=== PATIENT | female | born 1955 | race Caucasian/White ===

== ENCOUNTER → 2018-05-25 | Outpatient (CLI) | payer BC ==
--- NOTE | 2018-05-25 12:13 | NM ---
EXAMINATION TYPE: NM thyroid image only DATE OF EXAM: 05/25/2018 COMPARISON: NONE HISTORY: Abnormal thyroid labs R94.6 TECHNIQUE: After the intravenous administration of 10.45 mCi Tc 99m Sodium Pertechnetate. FINDINGS: Thyroid gland is enlarged. There is a warm nodule noted within the lower pole of the right thyroid lo be and cold defect identified within the lower pole of the left thyroid lobe. Diffuse glandular heter ogeneity is noted. IMPRESSION: 1. Thyroidomegaly. 2. Cold nodule suggested lower pole left thyroid lobe. Correlate with ultrasound.
== END | disposition home or self-care (01) ==
LOC: RADNMMAIN 10:57
PROVIDERS: ATTEND Family Medicine
DX: E01.0 Iodine-deficiency related diffuse (endemic) goiter (principal)
CPT/HCPCS: 78013; A9512

== ENCOUNTER → 2018-05-25 | Outpatient (CLI) | payer BC ==
--- NOTE | 2018-05-25 12:27 | US ---
EXAMINATION TYPE: US thyroid st tissue head/neck DATE OF EXAM: 05/25/2018 COMPARISON: Nuclear medicine thyroid scan from the same day CLINICAL HISTORY: Neck mass R22.0. Pt states palpable lump right anterior neck x 6 months GLAND SIZE: Right Lobe: 5.9 x 3.0 x 4.2 cm Overall Parenchyma: heterogenous Left Lobe: 4.1 x 1.1 x 1.2 cm Overall Parenchyma: heterogeneous Isthmus Thickness: 0.3 cm NODULES RIGHT: # of nodules measured on right: 1 1. 4.1 X 2.8 x 3.7 cm mixed nodule at the mid pole with well-defined margins; This nodule is wider than tall and shows intranodular vascularity. Prior size: No prior 2. 1.3 X 1.3 x 1.0 cm hypoechoic solid nodule at the upper pole with well-defined margins; This nod ule is wider than tall and shows intranodular vascularity. Prior size: No prior LEFT: # of nodules measured on left: 1 1. 0.6 X 0.4 x 0.6 cm hypoechoic mixed nodule at the mid pole with well-defined margins; This nodul e is wider than tall and shows intranodular vascularity. Prior size: No prior Multiple, sub-centimeter nodules scattered throughout left lobe, largest measured Bilateral neck scanned, no evidence of lymphadenopathy. Multiple nodules bilaterally, with largest on right side. IMPRESSION: 1. There is evidence of thyroidomegaly with the right lobe being larger than the left. 2. Diffuse glandular heterogeneity. 3. No suspicious nodule left thyroid lobe. 4. Complex nodule right thyroid lobe. Consider tissue diagnosis.
== END | disposition home or self-care (01) ==
LOC: RADUSWWP 11:01
PROVIDERS: ATTEND Family Medicine
DX: E01.0 Iodine-deficiency related diffuse (endemic) goiter (principal)
CPT/HCPCS: 76536

== ENCOUNTER → 2021-03-26 | Outpatient (CLI) | payer MEDICARE ==
--- NOTE | 2021-03-27 10:17 | MM ---
Reason for exam: clinical finding. History: Patient is postmenopausal, has history of other cancer at age 55, and is nulliparous. Physical Findings: Nurse did not find any significant physical abnormalities on exam. MG 3D Diag Mammo W/Cad LISA Bilateral CC and MLO view(s) were taken. Spot compression MLO, spot compression CC, and LM view(s) were taken of the right breast. No prior studies available for comparison. The breast tissue is heterogeneously dense. This may lower the sensitivity of mammography. There is a spiculated mass in retropectoral right breast and ultrasound is recommended. Right nipple retraction is present. There area a few asymmetries in the right central and upper breast and ultrasound is recommended. Right axillary lymphadenopathy is present and ultrasound is recommended. These results were verbally communicated with the patient and result sheet given to the patient on 03/26/21. ASSESSMENT: Incomplete: need additional imaging evaluation, BI-RAD 0 RECOMMENDATION: Ultrasound of the right breast.
--- NOTE | 2021-03-27 10:20 | USB ---
Reason for exam: additional evaluation requested from abnormal screening. History: Patient is postmenopausal, has history of other cancer at age 55, and is nulliparous. US Breast Limited RT Right limited breast ultrasound including focal area of concern, retroareolar and axilla demonstrates a 2.6 x 2.0 x 3.1cm irregular, taller than wide, hypoechoic lesion at the posterior nipple and a 2.5 x 0.7 x 0.7cm lymph node at the axilla. These results were verbally communicated with the patient and result sheet given to the patient on 03/26/21. ASSESSMENT: Highly suggestive of malignancy, BI-RAD 5 RECOMMENDATION: Ultrasound core biopsy of the right breast. Called Dr. Randall's office with mammographic findings and has scheduled an appointment for the patient for 04/05/21at 8:[address] Vela. Biopsy scheduled for 04/12/21 at 1:00. PRELIMINARY REPORT CALLED AND FAXED TO DR. VELA ON 03/27/21.
== END | disposition home or self-care (01) ==
LOC: RADMAMWWP 08:30
PROVIDERS: ATTEND Family Medicine
DX: R92.8 Other abnormal and inconclusive findings on diagnostic imaging of breast (principal); R59.0 Localized enlarged lymph nodes; N64.89 Other specified disorders of breast; Z78.0 Asymptomatic menopausal state; Z85.9 Personal history of malignant neoplasm, unspecified
CPT/HCPCS: 77066; 76642; G0279; 77062

== ENCOUNTER → 2021-04-05 | Outpatient (CLI) | payer MEDICARE ==
[2021-04-05 08:39] VITALS: BP 116/80; PULSE 84; RESP 18; TEMP 98.4
--- NOTE | 2021-04-05 09:32 | P.GSHP ---
History of Present Illness H&P Date: 04/05/21 Chief Complaint: mass right breast David is a 65-year-old white female seen in consultation for regarding the mass and radiographic abnormality in the right breast. The patient states that she felt some itching behind her nipple areolar complex for approximately a month. In addition she noted that the nipple was retracting intermittently. [place] [id number]. This revealed a spiculated mass posterior to the right nipple areolar complex and ultrasound was recommended. Ultrasound confirmed in the area of radiographic abnormality at 2.6 x 3.1 cm irregular tolerated and wide lesion posterior to the nipple complex. Additionally a 2.5-0.7 cm lymph node in the axilla was noted which was not felt to be suspicious. The patient does not feel any lumps masses or nodules otherwise in her breast. She has never had any surgery on her breasts. 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, 15 years ago tonsil Medical history: thyroid nodule/ hyperthyroid HTN Social History: Nicotine: One pack per day for 40 years Alcohol: weekly drugs: none - Constitutional Constitutional: Denies chills, Denies fever - EENT Comment: sty on left eye lid Ears: bilateral: tinnitus, deny: decreased hearing Ears, nose, mouth and throat: Denies headache, Denies sore throat - Breasts Breasts: bilateral: as per HPI - Cardiovascular Cardiovascular: Denies chest pain, Denies shortness of breath - Respiratory Comment: smoker 40 years - Gastrointestinal Gastrointestinal: Denies abdominal pain, Denies diarrhea, Denies nausea, Denies vomiting - Genitourinary (Female) Genitourinary: Denies dysuria, Denies hematuria - Menstruation Menstruation: Reports post hysterectomy - Musculoskeletal Musculoskeletal: Denies myalgias - Integumentary Comment: sty left eyelid - Neurological Neurological: Denies numbness, Denies weakness - Psychiatric Psychiatric: Denies anxiety, Denies depression - Endocrine Endocrine: Reports as per HPI - Hematologic/Lymphatic Comment: none - Allergic/Immunologic Allergic/Immunologic: Reports as per HPI, Reports seasonal allergies Past Medical History Past Medical History: Hypertension, Thyroid Disorder History of Any Multi-Drug Resistant Organisms: None Reported Past Surgical History: Hysterectomy, Tonsillectomy Additional Past Surgical History / Comment(s): skin cancer on scalp 2004 Additional Past Anesthesia/Blood Transfusion Reaction / Comment(s): had trouble waking up Past Psychological History: No Psychological Hx Reported Smoking Status: Current every day smoker Past Alcohol Use History: None Reported Past Drug Use History: None Reported - Past Family History Mother Family Medical History: Cancer Additional Family Medical History / Comment(s): colon Father Family Medical History: Chest Pain / Angina Additional Family Medical History / Comment(s): pace maker Medications and Allergies Home Medications Medication Instructions Recorded Confirmed Type Methimazole [Tapazole] 10 mg PO DAILY 04/05/21 04/05/21 History lisinopriL 20 mg PO DAILY 04/05/21 04/05/21 History Allergies Allergy/AdvReac Type Severity Reaction Status Date / Time clindamycin Allergy Rash/Hives Verified 04/05/21 08:35 latex Allergy Swelling Verified 04/05/21 08:35 Surgical - Exam Vital Signs Temp Pulse Resp BP Pulse Ox 98.4 F 84 18 116/80 97 04/05/21 08:37 04/05/21 08:37 04/05/21 08:37 04/05/21 08:37 04/05/21 08:37 BMI 31.1 - General well developed, well nourished, no distress - Eyes normal ocular movement - ENT normal nares - Neck no masses, trachea midline - Respiratory normal respiratory effort, clear to auscultation - Cardiovascular Heart Sounds: normal: S1, S2 - Abdomen Abdomen: soft, non tender, no guarding, no rigid, no rebound - Integumentary sty left eye - Neurologic no disoriented, no combative - Musculoskeletal normal gait - Psychiatric oriented to time, oriented to person, oriented to place, speech is normal, memory intact Breast exam: BRA: 38D inspection: bilateral ptosis grade 3, right nipple retracted, right breast lar priscilla than left Palpation: Right breast: Multi-positional exam fibrocystic changes, firm nodularity posterior to nipple areolar complex approximately 2 and half centimeters in size, nipple retraction Right axilla: No adenopathy of concern Left breast: Multi-positional exam no dominant masses or nodules of concern Left axilla: No adenopathy of concern Results Patient's mammogram and ultrasound reviewed with Dr. Masterson from radiology Assessment and Plan Assessment: Impression: 1. Hyperthyroidism 2. Hypertension 3. Radiographic abnormality right breast 4. Palpable abnormality right breast with nipple retraction 5. Bilateral fibrocystic breast changes 6. Family history of colon cancer Plan: 1. Ultrasound-guided core biopsy right breast 2. Follow up after ultrasound core biopsy 3. Assure that hyperthyroidism is under control 4. Patient will discuss left eye sty with primary care doctor/consider ophthalmology appointment 5. clearance form Dr. Sanchez regarding hyperthyroidism Cc: Dr. Randall Benefits of ultrasound core biopsy discussed with the patient. She understands and wishes to proceed.
== END ==
LOC: WWCWWP 08:16
PROVIDERS: ATTEND Surgery
DX: N64.53 Retraction of nipple (principal); N60.11 Diffuse cystic mastopathy of right breast; N60.12 Diffuse cystic mastopathy of left breast; E05.90 Thyrotoxicosis, unspecified without thyrotoxic crisis or storm; I10 Essential (primary) hypertension; F17.210 Nicotine dependence, cigarettes, uncomplicated; Z80.0 Family history of malignant neoplasm of digestive organs; Z79.899 Other long term (current) drug therapy; Z88.1 Allergy status to other antibiotic agents; Z91.040 Latex allergy status

== ENCOUNTER → 2021-04-12 | Day surgery (SDC) | payer MEDICARE ==
[2021-04-12 12:10] VITALS: RESP 16
[2021-04-12 14:43] VITALS: BP 102/70; PULSE 76; TEMP 98.3
--- NOTE | 2021-04-12 16:40 | USB ---
EXAMINATION TYPE: US biopsy breast VAD RT, US biopsy breast add'l VAD RT, US biopsy breast add'l VAD RT, MG post biopsy diagnostic mammo RT wo CAD DATE OF EXAM: 04/12/2021 CLINICAL HISTORY: 65-year-old female with progressive right-sided nipple retraction. R92.8, Abnormal mammogram. TECHNIQUE: Ultrasound guided core biopsy of the right breast, 3 sites COMPARISON: 03/26/2021 FINDINGS: The procedure of ultrasound guided core biopsy was explained to the patient. Benefits, alternatives, and risks were discussed. An informed consent was then obtained. The patient was placed in supine positioning for imaging and for the procedure. The overlying skin was prepped and draped in usual sterile fashion. Lidocaine was used as anesthetic into the skin followed by lidocaine/epinephrine into the subcutaneous tissue up to area of concern at each site director internal communications. Site A, posterior nipple, BI-RADS 5 mass: Under ultrasound guidance, a 13-gauge vacuum assisted mammotome Elite biopsy done was used to obtain 5 core samples. Following this, a wing clip was left in lesion. Site B, 9:00 hypoechoic shadowing: Under ultrasound guidance, a 13-gauge vacuum assisted mammotome Elite biopsy done was used to obtain 3 core samples. Following this, a ribbon clip was left in lesion. Low suspicion following anesthetic administration as the area became less defined. Findings suggest shadowing breast tissue. Site C, 8:00 zone B/C, 2 adjacent prominent, thickened but nonenlarged intramammary lymph nodes, equivocal: Under ultrasound guidance, a 13-gauge vacuum assisted mammotome Elite biopsy done was used to obtain a total of 10 core samples from both lymph nodes. Following this, a coil clip was deposited between the 2 nodes which are located only 1.5 cm apart from each other. The patient tolerated the procedure well without any immediate complication. The patient was kept in the radiology department for short stay after the procedure and then discharged home in stable condition. Post procedure mammogram shows the [address]. IMPRESSION: Successful, uncomplicated 3 site ultrasound guided core needle biopsy of the right breast. A: BI-RADS 5 subareolar mass, wing clip. B: 9:00 hypoechoic shadowing, ribbon clip, low clinical suspicion as the area became less defined after anesthetic administration. C: 8:00, 2 adjacent, mildly thickened intramammary nodes, equivocal. Coil clip deposited between the 2 nodes. Full pathology results to follow. Pathology Results: Malignant A. RIGHT BREAST, POSTERIOR NIPPLE, ULTRASOUND GUIDED CORE BIOPSY: Invasive moderately differentiated ductal carcinoma (Grade 2). See Surgical Pathology Cancer Case Summary. B. RIGHT BREAST, 9:00, ULTRASOUND GUIDED CORE BIOPSY: Fibrocystic changes including rare microcalcifications. Negative for malignancy. C. RIGHT BREAST, 8:00, ULTRASOUND GUIDED CORE BIOPSY: Benign lymph node. Recommendation Surgical consult of the right breast. REAGAND
== END ==
LOC: RADUSWWP 12:00
PROVIDERS: ATTEND Surgery
DX: R92.8 Other abnormal and inconclusive findings on diagnostic imaging of breast (principal); N63.41 Unspecified lump in right breast, subareolar; N64.53 Retraction of nipple
CPT/HCPCS: 88305; 88342; 88341; 77065; 19083; 19084; A4648; J2001

== ENCOUNTER → 2021-04-27 | Outpatient (CLI) | payer MEDICARE ==
[2021-04-27 12:12] VITALS: BP 117/67; PULSE 87; RESP 18; TEMP 98.4
--- NOTE | 2021-04-27 12:44 | P.PN ---
Subjective Progress Note Date: 04/27/21 Principal diagnosis: Invasive ductal carcinoma G2 right breast David is a 65-year-old white female seen in consultation for regarding the mass and radiographic abnormality in the right breast. The patient states that she felt some itching behind her nipple areolar complex for approximately a month. In addition she noted that the nipple was retracting intermittently. [place] [id number]. This revealed a spiculated mass posterior to the right nipple areolar complex and ultrasound was recommended. Ultrasound confirmed in the area of radiographic abnormality at 2.6 x 3.1 cm irregular tolerated and wide lesion posterior to the nipple complex. Additionally a 2.5-0.7 cm lymph node in the axilla was noted which was not felt to be suspicious. The patient does not feel any lumps masses or nodules otherwise in her breast. She has never had any surgery on her breasts. She underwent an ultrasound-guided core biopsy of the right breast on [id number]. This was at the 9 o'clock position and at the 8 o'clock position as well as posterior nipple position. The posterior nipple position did reveal invasive moderately differentiated ductal carcinoma. This was grade 2. The right breast 9 o'clock position was negative for malignancy in the right breast lymph node was negative for malignancy. She tolerated the biopsy without difficulty. The lesion is ER positive [place] negative and HER-2 negative. 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, 15 years ago tonsil Medical history: thyroid nodule/ hyperthyroid HTN Social History: Nicotine: One pack per day for 40 years Alcohol: weekly drugs: none - Constitutional Constitutional: Denies chills, Denies fever - EENT Comment: sty on left eye lid Ears: bilateral: tinnitus, deny: decreased hearing Ears, nose, mouth and throat: Denies headache, Denies sore throat - Breasts Breasts: bilateral: as per HPI - Cardiovascular Cardiovascular: Denies chest pain, Denies shortness of breath - Respiratory Comment: smoker 40 years - Gastrointestinal Gastrointestinal: Denies abdominal pain, Denies diarrhea, Denies nausea, Denies vomiting - Genitourinary (Female) Genitourinary: Denies dysuria, Denies hematuria - Menstruation Menstruation: Reports post hysterectomy - Musculoskeletal Musculoskeletal: Denies myalgias - Integumentary Comment: sty left eyelid - Neurological Neurological: Denies numbness, Denies weakness - Psychiatric Psychiatric: Denies anxiety, Denies depression - Endocrine Endocrine: Reports as per HPI - Hematologic/Lymphatic Comment: none - Allergic/Immunologic Allergic/Immunologic: Reports as per HPI, Reports seasonal allergies Objective - Exam BMI 30 - Constitutional General appearance: Present: cooperative - EENT Eyes: Present: EOMI ENT: Present: hearing grossly normal - Neck Neck: Present: normal ROM - Respiratory Respiratory: bilateral: CTA - Cardiovascular Heart sounds: normal: S1, S2 - Integumentary Integumentary: Present: normal turgor - Musculoskeletal Musculoskeletal: Present: gait normal - Psychiatric Psychiatric: Present: A&O x's 3, appropriate affect, intact judgment & insight - Additional findings Additional findings: biopsy site and dry Evidence of infection or hematoma Assessment and Plan Assessment: Impression: 1. Stage IIA right breast cancer Plan: 1. clearance Dr. Jessica 2. Right breast needle localization bracketing, lumpectomy via a mammoplasty incision, sentinel node injection right, right sentinel node biopsy, possible right axillary node dissection 3. Patient has agreed to stop smoking 4. Genetic testing been ordered Pathology was discussed with the patient and her . Treatment of the breast options mastectomy plus or minus reconstruction versus lumpectomy were discussed. She would prefer to have a lumpectomy done via a reduction mammoplasty approach. The patient and her understand risks include bleeding, infection, reaction to the anesthetic. If margins were to be positive that she will need additional resection. Stanton node biopsy risks include bleeding, infection, reaction to the anesthetic. Axillary node dissection risks include the same. Additionally patient could have some lymphedema, decreased sensation to the inner arm, or possible injury to the thoracodorsal or long thoracic nerves.
== END ==
LOC: WWCWWP 11:59
PROVIDERS: ATTEND Surgery
DX: C50.911 Malignant neoplasm of unspecified site of right female breast (principal); I10 Essential (primary) hypertension; Z17.0 Estrogen receptor positive status [ER+]; F17.210 Nicotine dependence, cigarettes, uncomplicated; Z88.1 Allergy status to other antibiotic agents; Z91.040 Latex allergy status

== ENCOUNTER → 2021-06-01 | Outpatient (CLI) | payer MEDICARE ==
[2021-06-01 14:18] VITALS: BP 118/77; PULSE 76; RESP 18; TEMP 98.5
--- NOTE | 2021-06-01 14:55 | P.PN ---
Subjective Progress Note Date: 06/01/21 Principal diagnosis: [id number]-G2 right breast cancer/ Invasive ductal carcinoma right bresat [id number]- David is a 65-year-old white female seen in consultation for regarding the mass and radiographic abnormality in the right breast. The patien t states that she felt some itching behind her nipple areolar complex for approximately a month. In addition she noted that the nipple was retracting intermittently. The bilateral mammogram was performed on . This revealed a spiculated mass posterior to the right nipple areolar complex and ultrasound was recommended. Ultrasound confirmed in the area of radiographic abnormality at 2.6 x 3.1 cm irregular taller than wide lesion posterior to the nipple complex. Additionally a 2.5-0.7 cm lymph node in the axilla was noted which was not felt to be suspicious. The patient does not feel any lumps masses or nodules otherwise in her breast. She has never had any surgery on her breasts. She underwent an ultrasound-guided core biopsy of the right breast on . This was at the 9 o'clock position and at the 8 o'clock position as well as posterior nipple position. The posterior nipple position did reveal invasive moderately differentiated ductal carcinoma. This was grade 2. The right breast 9 o'clock position was negative for malignancy in the right breast lymph node was negative for malignancy. She tolerated the biopsy without difficulty. The lesion is ER positive [place] negative and HER-2 negative. She had genetic testing performed which was negative. 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, 15 years ago tonsil Medical history: thyroid nodule/ hyperthyroid HTN Social History: Nicotine: One pack per day for 40 years Alcohol: weekly drugs: none - Constitutional Constitutional: Denies chills, Denies fever - EENT Comment: sty on left eye lid Ears: bilateral: tinnitus, deny: decreased hearing Ears, nose, mouth and throat: Denies headache, Denies sore throat - Breasts Breasts: bilateral: as per HPI - Cardiovascular Cardiovascular: Denies chest pain, Denies shortness of breath - Respiratory Comment: smoker 40 years - Gastrointestinal Gastrointestinal: Denies abdominal pain, Denies diarrhea, Denies nausea, Denies vomiting - Genitourinary (Female) Genitourinary: Denies dysuria, Denies hematuria - Menstruation Menstruation: Reports post hysterectomy - Musculoskeletal Musculoskeletal: Denies myalgias - Integumentary Comment: sty left eyelid - Neurological Neurological: Denies numbness, Denies weakness - Psychiatric Psychiatric: Denies anxiety, Denies depression - Endocrine Endocrine: Reports as per HPI - Hematologic/Lymphatic Comment: none - Allergic/Immunologic Allergic/Immunologic: Reports as per HPI, Reports seasonal allergies Objective - Vital Signs Vital signs: Vital Signs Temp 98.5 F 06/01/21 14:15 Pulse 76 06/01/21 14:15 Resp 18 06/01/21 14:15 BP 118/77 06/01/21 14:15 Pulse Ox 97 06/01/21 14:15 Intake & Output 05/31/21 06/01/21 06/01/21 18:59 06:59 18:59 Weight 83.915 kg - Exam BMI 30.8 - Constitutional General appearance: Present: cooperative - EENT Eyes: Present: EOMI ENT: Present: hearing grossly normal - Neck Neck: Present: normal ROM - Respiratory Respiratory: bilateral: CTA - Cardiovascular Rhythm: regular Heart sounds: normal: S1, S2 - Gastrointestinal General gastrointestinal: Present: soft - Integumentary Integumentary: Present: normal turgor - Musculoskeletal Musculoskeletal: Present: gait normal - Psychiatric Psychiatric: Present: A&O x's 3, appropriate affect - Additional findings Additional findings: Breast Exam: BRA: 40D inspection: nipple retraction right side palpation: right breast: Retraction of the nipple on the right, multiple positional exam of the breast mass posterior to the right nipple areolar complex Right axilla: No adenopathy of concern Left breast: Multiple positional exam fibrocystic changes, no dominant masses or nodules of concern Left axilla: No adenopathy of concern Assessment and Plan Assessment: Impression: HTN hyperthyroid (methamazole) [id number]+Pr-[id number]-G2 right breast cancer Plan: 1. After discussion with the patient she has opted for a right breast central lumpectomy she understands she will lose the nipple areolar complex without immediate reconstruction. She has been given the option to see a plastic surgeon and declined. She continues to smoke and therefore a reduction mammoplasty incision is not recommended. She understands this and is trying to stop smoking. Additionally we will do a right sentinel node mapping, right sentinel node biopsy, possible right axillary node dissection. She understands and wishes to proceed. 2. medical clearance DR. Pinon CC: Dr. Pinon
== END ==
LOC: WWCWWP 13:52
PROVIDERS: ATTEND Surgery
DX: C50.911 Malignant neoplasm of unspecified site of right female breast (principal); E03.9 Hypothyroidism, unspecified; I10 Essential (primary) hypertension; F17.210 Nicotine dependence, cigarettes, uncomplicated; Z79.890 Hormone replacement therapy; Z17.0 Estrogen receptor positive status [ER+]; Z88.1 Allergy status to other antibiotic agents; Z91.040 Latex allergy status

== ENCOUNTER 2021-06-05 07:08 | Day surgery (SDC) | payer MEDICARE ==
[2021-06-01 09:39] VITALS: BMI 30.7
[~2021-06-05 07:08] MED LIST: DEXAMETHASONE SOD PHOSPHATE 4 MG/ML 1 ML VIAL IV ONE; HEPARIN SODIUM,PORCINE/PF 5,000 UNIT/0.5 ML SYRINGE SQ PRN; HYDROmorphone 0.5 MG/0.5 ML SYRINGE IVP PRN; LACTATED RINGERS 1,000 ML IV SCH; LIDOCAINE 1% (10MG/ML) FOR IV START INTRADERMA PRN; ONDANSETRON 4 MG/2 ML VIAL IVP ONE; Pre Op ABX Message 1 EACH MISC MISCELLANE ONE; SCOPOLAMINE 1.5MG/72HR PATCH TRANSDERM ONE
[2021-06-05] MEDS ORDERED: LACTATED RINGERS 1,000 ML IV ONE ×2 (07:33→12:57)
[2021-06-05] MEDS ORDERED: ALPRAZolam 0.5 MG TAB ONE (07:35)
[2021-06-05 08:47] VITALS: RESP 16
[2021-06-05] MEDS ORDERED: LIDOCAINE 1% INJ 10MG/ML (20 ML MDV) SQ ONE (08:53)
--- NOTE | 2021-06-05 09:46 | NM ---
EXAMINATION TYPE: NM sentinel node injection DATE OF EXAM: 06/05/2021 COMPARISON: NONE INDICATION: Abnormal mammogram. Informed consent was obtained. A timeout was performed. The area around the right nipple was cleansed with alcohol. In a single dose, a total of 543 uCi Te chnetium 99m Tilmanocept was injected. The patient tolerated the procedure very well. IMPRESSIONS: 1. Successful injection for sentinel node evaluation.
--- NOTE | 2021-06-05 10:47 | P.NAPBC ---
NAPBC Queries - NAPBC Queries Was patient's case review presented at [facility] tumor board? If no, comment.: Yes Was patient's pathology reviewed at [facility]? If no, comment.: Yes Was breast conservation surgery offered? If no, comment.: Yes Was sentinel node biopsy offered? If no, comment.: Yes Was diagnosis confirmed by percutaneous core biopsy? If no, comment.: Yes Is patient mastectomy patient?: No Was a preop referral to reconstructive surgeon offered?: Yes Clinical Stage: [id number]+DC+Her2-G2 right breast invasive ductal cancer
[2021-06-05] MEDS ORDERED: PROPOFOL 10 MG/ML 20 ML VIAL IV ONE (11:05)
[2021-06-05] MEDS ORDERED: MIDAZOLAM 2 MG/2 ML VIAL ONE (11:05)
[2021-06-05] MEDS ORDERED: SUCCINYLCHOLINE CHLORIDE 100 MG/5 ML SYR IV ONE (11:05)
[2021-06-05] MEDS ORDERED: fentaNYL (PF) 50 MCG/ML 2 ML AMP ONE (11:05)
[2021-06-05] MEDS ORDERED: LIDOCAINE 1% INJ 10MG/ML (20 ML MDV) ONE (11:05)
[2021-06-05] MEDS ORDERED: METHYLENE BLUE 50 MG/10 ML AMPUL MISCELLANE ONE (11:06)
[2021-06-05] MEDS ORDERED: SODIUM CHLORIDE 0.9% 100 ML with ceFAZolin 2,000 MG IV ONE ×2 (11:34)
--- NOTE | 2021-06-05 13:06 | P.OP ---
Date of Procedure: 06/05/21 Preoperative Diagnosis: Right breast invasive ductal carcinoma, T2 N0 M0 ER/TN positive HER-2/jennifer negative G-2 Postoperative Diagnosis: Same Procedure(s) Performed: Needle localization lumpectomy, onco-plastic tissue transfer 149 cm, sentinel node mapping, sentinel node biopsy Anesthesia: MONTRELLA Surgeon: Iqra Vela Estimated Blood Loss (ml): 20 IV fluids (ml): 800 Pathology: other (Breast tissue, sentinel lymph node right axilla) Condition: stable Disposition: same day Indications for Procedure: Invasive ductal carcinoma right breast Operative Findings: Dense breast tissue Description of Procedure: Bhargav is a 65-year-old white female diagnosed with invasive ductal right breast carcinoma. The lesion was directly behind the nipple areolar complex. After discussion was determined that we would do a central lumpectomy with removal of the nipple areolar complex. The patient was initially seen in the radiology department where needle localization was performed as well as injection of radioactive tracer for the sentinel lymph node biopsy. She was then brought to the operative suite and following induction of anesthesia the right axilla was interrogated using the neoprobe. Radioactivity was identified and therefore 5 mL of half-strength methylene blue were injected into the periareolar region and the breast was massaged. The breast and axilla were prepped and draped in a sterile fashion. The sentinel node procedure was done first. Using the neoprobe for localizing the area of greatest uptake incision was made in the axilla. This was carried down to the axillary contents. A palpable lymph node was identified. The radioactivity of the palpable node at 10 seconds was 428. Was not blue. The node was removed. The background count at 10 seconds was 28. No additional adenopathy of concern were palpated. No additional radioactive lymph nodes were identified that were of concern. The lymph nodes were identified. Following this th axillary wound was well irrigated. The deep tissues were closed using 3-0 Vicryl suture. This is followed by closure of the skin with a 4-0 Monocryl. The area of the breast was approached. A circumareolar incision was made and ca rried down to the pectoralis muscle. The surrounding tissue was excised. The cavity of excision was approximately 5 cm x 10 cm. The specimen was painted for orientation. The specimen was sent to x-ray and the area of concern was noted to be removed. This was confirmed with the radiologist. Following this the wound was well irrigated. Titanium clips were placed. Mobilization of the superior and inferior pedicle were performed. The superior pedicle was 6 cm x 11 cm per 66 cm and inferior pedicle was 2 cm x 11 cm 33 cm. The area that had been excised was 5 x 10 cm to 50 cm. The total tissue mobilized was 149 cm. The superior and inferior pedicle were brought together using 3-0 Vicryl suture. The subcutaneous tissue was closed using 2-0 Vicryl suture. The skin was closed using 4-0 Monocryl. The patient tolerated the procedure in stable condition. All instrument and sponge counts were correct at the end of the case.
--- NOTE | 2021-06-05 13:08 | P.DS ---
Providers Attending physician: Iqra Vela Primary care physician: Pao Randall Plan - Discharge Summary Discharge Rx Participant: No New Discharge Prescriptions: No Action Methimazole [Tapazole] 10 mg PO DAILY lisinopriL 20 mg PO DAILY Discharge Medication List Methimazole [Tapazole] 10 mg PO DAILY 04/05/21 [History] lisinopriL 20 mg PO DAILY 04/05/21 [History] Follow up Appointment(s)/Referral(s): Iqra Vela MD [STAFF PHYSICIAN] - 06/15/21 11:00 am Activity/Diet/Wound Care/Special Instructions: Do not drive if taking narcotic pain medications Do not Drive today Patient may shower after 48 hours Wear bra at all times unless showering Discharge Disposition: HOME SELF-CARE
[2021-06-05 13:34] VITALS: TEMP 97.3
[2021-06-05 15:22] VITALS: BP 114/78; PULSE 83
--- NOTE | 2021-06-05 15:37 | MM ---
EXAMINATION TYPE: MG pre op needle loc RT DATE OF EXAM: 06/05/2021 COMPARISON: 04/12/2021 CLINICAL HISTORY: Abnormal mammogram TECHNIQUE: Needle localization with wire placement and surgical excision of area of concern in the breast. FINDINGS: The procedure of needle localization with wire placement for surgical excision was explained to the patient. Risk, benefits, and alternatives were discussed. An informed consent was then obtained. A timeout was performed. The overlying skin was prepped and draped in usual sterile fashion. Lidocaine 1% was used as anesthetic into the skin and subcutaneous tissue up to the level of area of concern. A 9 cm needle was used. This was placed via a lateral approach under mammographic guidance. Subsequent 90 degrees mammogram show the needle to be in satisfactory position relative to the targeted area. The wire was placed through the needle and the needle was withdrawn. The wire was fixed to patient's skin. Images were marked for surgeon. The patient tolerated the procedure well without any immediate complication. Specimen: The wire and the targeted mass and core marker are identified within the specimen mammogram. Specimen was discussed surgeon by telephone IMPRESSION: 1. Successful wire localization and excision. Recommendations: 1. Recommendations are pending pathology results. Pathology Results: Malignant A. RIGHT SENTINEL LYMPH NODE: Lymph node positive for metastatic carcinoma. Size of metastatic deposit measures 16 mm in greatest dimension. Extranodal extension is present. B. RIGHT BREAST, LUMPECTOMY: Invasive moderately differentiated ductal carcinoma (Grade 2) and Grade 2 DCIS, margins negative. See Surgical Pathology Cancer Case Summary. Recommendation Surgical consult of the right breast. KELLY
== END 2021-06-05 13:45 | disposition home or self-care (01) ==
LOC: OR 07:08
PROVIDERS: ATTEND Surgery
DX: C50.911 Malignant neoplasm of unspecified site of right female breast (principal); Z17.0 Estrogen receptor positive status [ER+]; I10 Essential (primary) hypertension; F17.210 Nicotine dependence, cigarettes, uncomplicated; E07.9 Disorder of thyroid, unspecified; Z79.899 Other long term (current) drug therapy; Z91.040 Latex allergy status
CPT/HCPCS: 19301; 19281; 38792; 76098; 88307; C1819; A9520; J2250; J1100; J2405; J0690; J2001; J3010; J0330; J2704; Q9968; J1170; J1790; J1644

== ENCOUNTER → 2021-06-15 | Outpatient (CLI) | payer MEDICARE ==
[2021-06-15 11:23] VITALS: BP 120/85; PULSE 83; RESP 12; TEMP 98
--- NOTE | 2021-06-15 11:31 | P.PN ---
Subjective Progress Note Date: 06/15/21 Principal diagnosis: right breast cancer David is a 66 year old white female status post right breast lumpectomy and SNL biopsy on 06-05-21. The margins were all negative, the tumor size was 3.1 cm. The patient did have 1 sentinel node removed which was positive for cancer. The patient is doing well at this time postoperatively. Objective - Constitutional General appearance: Present: cooperative - EENT Eyes: Present: EOMI ENT: Present: hearing grossly normal - Neck Neck: Present: normal ROM - Respiratory Respiratory: bilateral: CTA - Cardiovascular Heart sounds: normal: S1, S2 - Integumentary Integumentary Comment(s): incision clean and dry breast and axilla Assessment and Plan Assessment: Impression: 1. status post right breast lumpectomy and SNB; margins (-) but node + [id number]-G2 Plan: 1. follolw up with medical and radiation oncology 2. follow up here in 4 months 4. d/c sutures 5. represent at tumor board Cc: DR. Jessica
== END ==
LOC: WWCWWP 11:09
PROVIDERS: ATTEND Surgery
DX: C50.911 Malignant neoplasm of unspecified site of right female breast (principal); Z17.0 Estrogen receptor positive status [ER+]; Z88.1 Allergy status to other antibiotic agents; Z91.040 Latex allergy status

== ENCOUNTER → 2021-09-28 | Outpatient (CLI) | payer MEDICARE ==
[2021-09-28 10:45] VITALS: BP 110/77; PULSE 114; RESP 18; TEMP 98.5
--- NOTE | 2021-09-28 11:11 | P.PN ---
Subjective Progress Note Date: 09/28/21 Principal diagnosis: [id number]-[id number]-[id number] right breast cancer/ stage IIB [id number]-HER2-G2 right breast cancer/ Invasive ductal carcinoma right breast [id number]- David is a 66-year-old white female seen in consultation for regarding the mass and radiographic abnormality in the right breast. The patient states that she felt some itching behind her nipple areolar complex for approximately a month. In addition she noted that the nipple was retracting intermittently. The bilateral mammogram was performed on . This revealed a spiculated mass posterior to the right nipple areolar complex and ultrasound was recommended. Ultrasound confirmed in the area of radiographic abnormality at 2.6 x 3.1 cm irregular taller than wide lesion posterior to the nipple complex. Additionally a 2.5-0.7 cm lymph node in the axilla was noted which was not felt to be suspicious. The patient does not feel any lumps masses or nodules otherwise in her breast. She has never had any surgery on her breasts. She underwent an ultrasound-guided core biopsy of the right breast on . This was at the 9 o'clock position and at the 8 o'clock position as well as posterior nipple position. The posterior nipple position did reveal invasive moderately differentiated ductal carcinoma. This was grade 2. The right breast 9 o'clock position was negative for malignancy in the right breast lymph node was negative for malignancy. She tolerated the biopsy without difficulty. The lesion is ER positive OH negative and HER-2 negative. She had genetic testing performed which was negative. 09-28-21 On 06-05-21 she had a right lumpectomy and sentinel node biopsy. She subsequently had chemotherapy and has 1 more treatment next week. She is going to follow with radiation therapy after the chemotherapy and hormonal therapy after the radiation therapy. At this time she is doing well without any complaints. She is not complaining of any changes in the breast and no concerns related to the chemotherapy. 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, 15 years ago tonsil right breast lumpectomy and SNB Medical history: thyroid nodule/ hyperthyroid HTN Social History: Nicotine: One pack per day for 40 years Alcohol: weekly drugs: none - Constitutional Constitutional: Denies chills, Denies fever - EENT Comment: sty on left eye lid Ears: bilateral: tinnitus, deny: decreased hearing Ears, nose, mouth and throat: Denies headache, Denies sore throat - Breasts Breasts: bilateral: as per HPI - Cardiovascular Cardiovascular: Denies chest pain, Denies shortness of breath - Respiratory Comment: smoker 40 years - Gastrointestinal Gastrointestinal: Denies abdominal pain, Denies diarrhea, Denies nausea, Denies vomiting - Genitourinary (Female) Genitourinary: Denies dysuria, Denies hematuria - Menstruation Menstruation: Reports post hysterectomy - Musculoskeletal Musculoskeletal: Denies myalgias - Integumentary Comment: sty left eyelid - Neurological Neurological: Denies numbness, Denies weakness - Psychiatric Psychiatric: Denies anxiety, Denies depression - Endocrine Endocrine: Reports as per HPI - Hematologic/Lymphatic Comment: none - Allergic/Immunologic Allergic/Immunologic: Reports as per HPI, Reports seasonal allergies Objective - Vital Signs Vital signs: Vital Signs Temp 98.5 F 09/28/21 10:43 Pulse 114 H 09/28/21 10:43 Resp 18 09/28/21 10:43 BP 110/77 09/28/21 10:43 Pulse Ox 97 09/28/21 10:43 Intake & Output 09/27/21 09/28/21 09/28/21 18:59 06:59 18:59 Weight 83.915 kg - Exam BMI 30.8 - Constitutional General appearance: Present: cooperative - EENT Eyes: Present: EOMI ENT: Present: hearing grossly normal - Neck Neck: Present: normal ROM - Respiratory Respiratory: bilateral: CTA - Cardiovascular Rhythm: regular Heart sounds: normal: S1, S2 - Gastrointestinal General gastrointestinal: Present: soft - Integumentary Integumentary: Present: normal turgor - Musculoskeletal Musculoskeletal: Present: gait normal - Psychiatric Psychiatric: Present: A&O x's 3, appropriate affect, intact judgment & insight - Additional findings Additional findings: Breast Exam: BRA: 38D inspection: Well-healed scar right breast from prior surgery/nipple areolar complex removed on the right, left breast grade 2/3 ptosis Palpation: Right breast: Multiple positional exam fibrocystic changes no dominant masses or nodules of concern, patient status post excision of tumor with removal of nipple areolar complex Right axilla: No adenopathy of concern Left breast: Multi-positional exam fibrocystic changes no dominant masses or nodules of concern Left axilla: No adenopathy of concern Assessment and Plan Assessment: Impression/Plan: 1. stage IIB right breast invasive ductal carcinoma, patient presently receiving chemotherapy. 2. Patient to follow with radiation oncology 3. Patient to have hormonal therapy after radiation therapy 4. Follow up here in 4 months 5. Left breast mammogram in January; consider right breast mammogram 6 months following radiation therapy CC: Dr. Randall
== END ==
LOC: WWCWWP 10:21
PROVIDERS: ATTEND Surgery
DX: C50.911 Malignant neoplasm of unspecified site of right female breast (principal); Z17.0 Estrogen receptor positive status [ER+]; F17.210 Nicotine dependence, cigarettes, uncomplicated; I10 Essential (primary) hypertension; Z88.1 Allergy status to other antibiotic agents; Z91.040 Latex allergy status

== ENCOUNTER → 2022-02-15 | Outpatient (CLI) | payer MEDICARE ==
--- NOTE | 2022-02-18 19:30 | BD ---
EXAMINATION TYPE: Axial Bone Density DATE OF EXAM: 02/15/2022 COMPARISON: NONE CLINICAL HISTORY: 66 year old Female. ICD-10 CODE: C50.111 BR CANCER Height: 65 Weight: 187.5 FRAX RISK QUESTIONS: Alcohol (3 or more units per day): no Family History (Parent hip fracture): no Glucocorticoids (More than 3mos): no (Ex: prednisone, prednisolone, methylprednisolone, dexamethasone, and hydrocortisone). History of Fracture in Adulthood: no Secondary Osteoporosis: 1. Type 1 Diabetes: no 2. Hyperthyroidism: no 3. Menopause before 45: no 4. Malnutrition: no 5. Chronic liver disease: no Rheumatoid Arthritis: no Current Tobacco Use: no RISK FACTORS HISTORY OF: Surgery to Spine/Hip(right/left)/Wrist (right/left): no Family History of Osteoporosis: no Active: yes Diet low in dairy products/other sources of calcium: yes Postmenopausal woman: yes Lost more than 2 inches in height since high school: no MEDICATIONS: Additional History: pt had breast cancer- chemo and radiation [id number] EXAM MEASUREMENTS: Bone mineral densitometry was performed using the [employer]. Bone mineral density as measured about the Lumbar spine is: ----- L1-L4(G/cm2): 1.260 T Score Values are as follows: ----- L1: -1.2 ----- L2: 0.0 ----- L3: 1.2 ----- L4: 2.0 ----- L1-L4: 0.7 Bone mineral density : baseline Bone mineral density about the R hip (g/cm2): 0.894 Bone mineral density about the L hip (g/cm2): 0.837 T Score values are as follows: -----R Neck: -1.0 -----L Neck: -1.4 -----R Total: -03 -----L Total: -0.3 Bone mineral density : baseline FRAX%s: The graph provided illustrates a 8.8% chance for a major osteoporotic fx and a 1.0% chance fo r the hips probability for fx in 10 years time. IMPRESSION: Osteopenia (T Score between -2.5 and -1). There is slightly increased risk of fracture and the patient may be considered for treatment. Re-Screen 2-5 years. NOTE: T-SCORE=SD OF THE YOUNG ADULT MEAN.
== END | disposition home or self-care (01) ==
LOC: RADBDWWP 16:13
PROVIDERS: ATTEND Internal Medicine Hematology & Oncology
DX: C50.111 Malignant neoplasm of central portion of right female breast (principal); M85.89 Other specified disorders of bone density and structure, multiple sites
CPT/HCPCS: 77080

== ENCOUNTER → 2022-04-16 | Outpatient (CLI) | payer MEDICARE ==
--- NOTE | 2022-04-16 09:00 | MM ---
Reason for Exam: Additional evaluation requested from prior study. Last mammogram was performed 1 year(s) and 1 month(s) ago. Patient History: Menarche at age 13. Patient has no children. Left ovary removed at age 46. Right ovary removed at age 46. Hysterectomy at age 46. Postmenopausal. Breast cancer, right, age 65. Other cancer, age 55. Previous chest radiation therapy at age 65. Previous chemotherapy at age 65. 06/05/2021, Lumpectomy on the Right side. 06/05/2021, Malignant Core Biopsy on the right side. 04/12/2021, Malignant Core Biopsy on the right side. 04/12/2021, Malignant Core Biopsy on the right side. 04/12/2021, Malignant Core Biopsy on the right side. Prior Study Comparison: 03/26/2021 Bilateral Diagnostic Mammogram, [facility]. 04/12/2021 Right Diagnostic Mammogram, [facility]. Tissue Density: The breast tissue is heterogeneously dense. This may lower the sensitivity of mammography. Findings: Analyzed By CAD. Postsurgical changes are within the right breast. Surgical clip are present stable calcifications in the upper outer right breast. Left breast appears stable over the interval. No significant interval changes are evident. Overall Assessment: Benign, BI-RAD 2 Management: Diagnostic Mammogram of both breasts in 1 year. A clinical breast exam by your physician is recommended on an annual basis and results should be correlated with mammographic findings. This exam should not preclude additional follow-up of suspicious palpable abnormalities. Results were given to the patient verbally at the time of exam. Electronically signed and approved by: Edgard Diop D.O. Radiologis
== END | disposition home or self-care (01) ==
LOC: RADMAMWWP 08:16
PROVIDERS: ATTEND Surgery
DX: R92.8 Other abnormal and inconclusive findings on diagnostic imaging of breast (principal); Z85.3 Personal history of malignant neoplasm of breast
CPT/HCPCS: 77066; G0279; 77062

== ENCOUNTER 2022-08-16 08:47 | Day surgery (SDC) | payer MEDICARE ==
[2022-08-15 09:07] VITALS: BMI 31.2
[~2022-08-16 08:47] MED LIST changes: -DEXAMETHASONE SOD PHOSPHATE 4 MG/ML 1 ML VIAL IV ONE; -HEPARIN SODIUM,PORCINE/PF 5,000 UNIT/0.5 ML SYRINGE SQ PRN; -HYDROmorphone 0.5 MG/0.5 ML SYRINGE IVP PRN; -LIDOCAINE 1% (10MG/ML) FOR IV START INTRADERMA PRN; -ONDANSETRON 4 MG/2 ML VIAL IVP ONE; -Pre Op ABX Message 1 EACH MISC MISCELLANE ONE; -SCOPOLAMINE 1.5MG/72HR PATCH TRANSDERM ONE
[2022-08-16 09:15] VITALS: TEMP 97
[2022-08-16] MEDS ORDERED: PROPOFOL 10 MG/ML 20 ML VIAL IV ONE (10:15)
--- NOTE | 2022-08-16 10:41 | P.PCN ---
Date of Procedure: 08/16/22 Procedure(s) Performed: BRIEF HISTORY: Patient is a 67-year-old pleasant white female scheduled for an elective colonoscopy as a part of evaluation of prior history of colon polyps. Last colonoscopy was in January 2021. PROCEDURE PERFORMED: Colonoscopy with snare polyp rectum. PREOPERATIVE DIAGNOSIS: []. IV sedation per Anesthesia. PROCEDURE: After informed consent was obtained, the patient, was brought into the endoscopy unit. IV sedation was administered by Anesthesia under continuous monitoring. Digital rectal examination was normal. Initially the Olympus CF-160 flexible video colonoscope was then inserted in the rectum, gradually advanced into the cecum without any difficulty. Careful examination was performed as the scope was gradually being withdrawn. Ileocecal valve and the appendiceal orifice were visualized and appeared normal. Prep was excellent. Mucosa of the cecum, ascending colon appeared normal. In the hepatic flexure there was a 1 cm flat residual polyp that was removed by snare polyp rectum and complete polypectomy accomplished. Rest of the, transverse colon, appeared normal. The descending colon there was another 5 mm polyp that was removed by snare polypectomy. descending colon, sigmoid colon, and rectum appeared normal. Retroflexion was performed in the rectum and no lesions were seen. The patient tolerated the procedure well. IMPRESSION: 1 cm residual flat hepatic flexure polyp status post polypectomy 5 mm descending colon polyp status post polypectomy Rest of the colon appeared normal RECOMMENDATIONS: Findings of this examination were discussed with the patient well as his family. She was advised to follow with the biopsy results. Recommend repeat colonoscopy in 3 years..
[2022-08-16 10:48] VITALS: RESP 16
[2022-08-16 11:13] VITALS: BP 111/62; PULSE 82
== END 2022-08-16 11:17 | disposition home or self-care (01) ==
LOC: ORWHC2ENDO 08:47
PROVIDERS: ATTEND Internal Medicine Gastroenterology
DX: Z12.11 Encounter for screening for malignant neoplasm of colon (principal); D12.3 Benign neoplasm of transverse colon; Z87.19 Personal history of other diseases of the digestive system
CPT/HCPCS: 88305; 45385; J2704

== ENCOUNTER → 2022-09-10 | Outpatient (CLI) | payer MEDICARE ==
[2022-09-10 14:34] LABS: HCT 39.3 % (37.2-46.3); HGB 13.5 g/dL (12.0-15.0); MCH 31.6 pg (27.0-32.0); MCHC 34.4 g/dL (32.0-37.0); Mean Platelet Volume 10.5 fL (9.5-12.2); NRBC Per 100 WBC 0 /100 WBCS (0.0-0.0); Platelet Count 331 X 10*3/uL (140-440); RBC 4.27 X 10*6/uL (4.10-5.20); RDW 13.2 % (11.5-14.5); WBC 7.31 X 10*3/uL (4.50-10.00)
[2022-09-10 14:50] LABS: African American GFR (CKD) 94.7 (60.0-200.0); Albumin 4.3 g/dL (3.8-4.9); Albumin/Globulin Ratio 1.92 (1.60-3.17); Anion Gap 13.5 mmol/L (10.00-18.00); BUN/Creat Ratio 16.8 Ratio (12.00-20.00); Blood Urea Nitrogen 12.7 mg/dL (9.0-27.0); Calcium 9.6 mg/dL (8.7-10.3); Carbon Dioxide 25.7 mmol/L (20.0-27.5); Globulin 2.2 g/dL (1.6-3.3); Non-African American GFR(CKD) 81.7 (60.0-200.0); Potassium 4.3 mmol/L (3.5-5.5); T4, Free (Free Thyroxine) 1.14 ng/dL (0.800-1.800); Total Bilirubin 0.4 mg/dL (0.30-1.20); Total Protein 6.6 g/dL (6.2-8.2)
== END | disposition home or self-care (01) ==
LOC: LABWHC1 09:00
PROVIDERS: ATTEND Internal Medicine Endocrinology, Diabetes & Metabolism
DX: E05.90 Thyrotoxicosis, unspecified without thyrotoxic crisis or storm (principal)
CPT/HCPCS: 36415; 80053; 84439; 84443; 84480; 85027

== ENCOUNTER → 2022-12-20 | Outpatient (CLI) | payer MEDICARE ==
--- NOTE | 2022-12-20 12:45 | P.PN ---
Subjective Progress Note Date: 12/20/22 right breast invasive ductal cancer, [id number]-Her2-G2 right breast cancer/ stage IIB [id number]-Her2-G2 right breast cancer/ stage IIB David is a 66-year-old white female seen in consultation for regarding a mass and radiographic abnormality in the right breast. The patient states that she felt some itching behind her nipple areolar complex for approximately a month. In addition she noted that the nipple was retracting intermittently. The bilateral mammogram was performed on . This revealed a spiculated mass posterior to the right nipple areolar complex and ultrasound was recommended. Ultrasound confirmed in the area of radiographic abnormality at 2.6 x 3.1 cm irregular taller than wide lesion posterior to the nipple complex. Additionally a 2.5-0.7 cm lymph node in the axilla was noted which was not felt to be suspicious. The patient did not feel any lumps masses or nodules otherwise in her breast. She has never had any surgery on her breasts. She underwent an ultrasound-guided core biopsy of the right breast on . This was at the 9 o'clock position and at the 8 o'clock position as well as posterior nipple position. The posterior nipple position did reveal invasive moderately differentiated ductal carcinoma. This was grade 2. The right breast 9 o'clock position was negative for malignancy in the right breast lymph node was negative for malignancy. She tolerated the biopsy without difficulty. The lesion is ER positive NC negative and HER-2 negative. She had genetic testing performed which was negative. On 06-05-21 she had a right lumpectomy and sentinel node biopsy. She subsequently had chemotherapy T/C x4 completed September 2021 Radiation therapy: 50Gy with 10Gray cavity boost completed January 2022 hormonal therapy: exmestane; tolerating this well Note 04-24-[address] Mckeon radiation oncology reviewed Mammogram: bilateral 04-16-22 Benign Birad 2 The patient is not complaining of any new lumps masses or nodules of concern in either breast. 12-20-22 At this time she is not complaining of any new lumps masses or nodules of concern in either breast. She is continuing her exmestane and tolerating it without difficulty.She is due for bilateral mammogram in April 2023. 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, 15 years ago tonsil right breast lumpectomy and SNB Medical history: thyroid nodule/ hyperthyroid HTN Social History: Nicotine: < one pack per day Alcohol: weekly drugs: none - Constitutional Constitutional: Denies chills, Denies fever - EENT Comment: sty on left eye lid Ears: bilateral: tinnitus, deny: decreased hearing Ears, nose, mouth and throat: Denies headache, Denies sore throat - Breasts Breasts: bilateral: as per HPI - Cardiovascular Cardiovascular: Denies chest pain, Denies shortness of breath - Respiratory Comment: smoker 40 years - Gastrointestinal Gastrointestinal: Denies abdominal pain, Denies diarrhea, Denies nausea, Denies vomiting - Genitourinary (Female) Genitourinary: Denies dysuria, Denies hematuria - Menstruation Menstruation: Reports post hysterectomy - Musculoskeletal Musculoskeletal: Denies myalgias - Integumentary Comment: sty left eyelid - Neurological Neurological: Denies numbness, Denies weakness - Psychiatric Psychiatric: Denies anxiety, Denies depression - Endocrine Endocrine: Reports as per HPI - Hematologic/Lymphatic Comment: none - Allergic/Immunologic Allergic/Immunologic: Reports as per HPI, Reports seasonal allergies Objective - Constitutional General appearance: Present: cooperative - EENT Eyes: Present: EOMI ENT: Present: hearing grossly normal - Neck Neck: Present: normal ROM - Respiratory Respiratory: bilateral: CTA - Cardiovascular Rhythm: regular Heart sounds: normal: S1, S2 - Gastrointestinal General gastrointestinal: Present: soft - Integumentary Integumentary: Present: normal turgor - Musculoskeletal Musculoskeletal: Present: gait normal - Psychiatric Psychiatric: Present: A&O x's 3, appropriate affect, intact judgment & insight - Additional findings Additional findings: Breast Exam: BRA: 40C Inspection: Postop changes right breast/patient has had a central lumpectomy Left nipple grade 3 ptosis Palpation: Right breast: Multi-positional exam postop and post radiation changes with some nodularity in the immediate posterior incision area which is believed to be surgical and radiation changes otherwise no dominant masses or nodules of concern Right axilla: No adenopathy of concern Left breast: Multi-positional exam fibrocystic changes no dominant masses or nodules of concern Left axilla: No adenopathy of concern Assessment and Plan Assessment: Impression: Right breast status post central lumpectomy for stage II invasive ductal carcinoma Patient is status post lumpectomy/chemotherapy/radiation therapy/and is presently on hormone therapy. Recent bilateral mammogram [id number] no evidence of recurrent disease; repeat mammogram in Plan: bilateral mammogram , follow up at that time Continue to follow with medical and radiation oncology Continue aromatase inhibitor Patient to call sooner any questions or concerns CC: Dr. Randall
[2022-12-20 12:46] VITALS: BP 109/56; PULSE 49; RESP 17; TEMP 98
== END ==
LOC: WWCWWP 11:33
PROVIDERS: ATTEND Surgery
DX: C50.811 Malignant neoplasm of overlapping sites of right female breast (principal); R92.8 Other abnormal and inconclusive findings on diagnostic imaging of breast; I10 Essential (primary) hypertension; Z92.3 Personal history of irradiation; Z91.040 Latex allergy status; Z88.1 Allergy status to other antibiotic agents; Z79.899 Other long term (current) drug therapy

== ENCOUNTER → 2023-03-05 | Outpatient (CLI) | payer MEDICARE ==
[2023-03-05 13:59] LABS: T4, Free (Free Thyroxine) 1.04 ng/dL (0.78-2.19)
== END | disposition home or self-care (01) ==
LOC: LABWHC1 11:24
PROVIDERS: ATTEND Internal Medicine Endocrinology, Diabetes & Metabolism
DX: E05.90 Thyrotoxicosis, unspecified without thyrotoxic crisis or storm (principal)
CPT/HCPCS: 36415; 84439; 84443; 84480

== ENCOUNTER → 2023-04-24 | Outpatient (CLI) | payer MEDICARE ==
[2023-04-24 11:37] VITALS: BP 119/83; PULSE 95; RESP 18; TEMP 98.1
== END ==
LOC: WWCWWP 11:28
PROVIDERS: ATTEND Surgery
DX: Z53.9 Procedure and treatment not carried out, unspecified reason (principal)

== ENCOUNTER → 2023-04-24 | Outpatient (CLI) | payer MEDICARE ==
--- NOTE | 2023-04-24 11:28 | MM ---
Reason for Exam: Hx of breast cancer, conservation therapy. Last screening mammogram was performed 12 month(s) ago. Patient History: Menarche at age 13. Patient has no children. Left ovary removed at age 46. Right ovary removed at age 46. Hysterectomy at age 46. Postmenopausal. Breast cancer, right, age 65. Other cancer, age 55. Previous chest radiation therapy at age 65. Previous chemotherapy at age 65. 06/05/2021, Lumpectomy on the Right side. 06/05/2021, Malignant Core Biopsy on the right side. 04/12/2021, Malignant Core Biopsy on the right side. 04/12/2021, Malignant Core Biopsy on the right side. 04/12/2021, Malignant Core Biopsy on the right side. 2020, Radiation Therapy on the right side. 2020, Chemotherapy. Tissue Density: The breast tissue is heterogeneously dense. This may lower the sensitivity of mammography. Findings: Analyzed By CAD. No new suspicious masses within either breast. Chronic nodularity within the left breast. Posttreatment changes of the right breast redemonstrated. New fine pleomorphic grouped calcifications within the right breast at the surgical site centrally approximately 4 cm from the nipple. Benign-appearing calcifications within both breasts. Overall Assessment: Suspicious, BI-RAD 4 Management: Stereotactic Core Biopsy of the right breast. A clinical breast exam by your physician is recommended on an annual basis and results should be correlated with mammographic findings. This exam should not preclude additional follow-up of suspicious palpable abnormalities. Results were given to the patient verbally at the time of exam. Electronically signed and approved by: Kumar Jacobs D.O.
--- NOTE | 2023-04-24 11:55 | P.PN ---
Subjective Progress Note Date: 04/24/23 [id number] right breast cancer/ stage IIB 2020 invasive ductal The patient was seen initially for Dr. Mondragon regarding a radiographic abnormality in the right breast. She had noted that she felt some itching behind the nipple areolar complex and some retraction of the nipple intermi ttently. A bilateral mammogram was performed on . This revealed a spiculated mass posterior to the right nipple areolar complex and ultrasound was recommended. Ultrasound confirmed a 2.6 x 3.1 cm lesion. Additionally at 2.5 cm lymph node was noted which was felt to be suspicious. The patient did not feel any specific lumps masses or nodules herself. She underwent ultrasound- guided core biopsy of the right breast and . This was at the 9:00 as well as the 8 o'clock position. The posterior nipple lesion revealed invasive moderately differentiated ductal carcinoma. This was ER positive CA and HER-2 negative. The second biopsy at the 9 o'clock position was negative. She had genetic testing performed which was negative. David is a 67-year-old white female who is status post right lumpectomy and sentinel node biopsy on ; patient this was identified as a spiculated mass posterior to the right nipple areolar complex and was noted to be 2.6 x 3.1 cm. ; Pathology revealed 2.1 cm grade 2 invasive ductal carcinoma, all margins negative, sentinel lymph node biopsy 1 of one positive. She underwent chemotherapy TC 4 completed September 2021 Radiation therapy: 50 Dickson with 10 Dickson cavity boost completed January 2022 Hormone therapy: Aromasin Note medical oncology [id number] Dr. Beck reviewed The patient does not feel any new lumps masses or nodules of concern in either breast. [place] [id number] which revealed some new calcifications in the right breast in the retroareolar region. 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, 15 years ago tonsil right breast lumpectomy and SNB Medical history: thyroid nodule/ hyperthyroid HTN Social History: Nicotine: < one pack per day Alcohol: weekly drugs: none - Constitutional Constitutional: Denies chills, Denies fever - EENT Comment: sty on left eye lid Ears: bilateral: tinnitus, deny: decreased hearing Ears, nose, mouth and throat: Denies headache, Denies sore throat - Breasts Breasts: bilateral: as per HPI - Cardiovascular Cardiovascular: Denies chest pain, Denies shortness of breath - Respiratory Comment: smoker 40 years - Gastrointestinal Gastrointestinal: Denies abdominal pain, Denies diarrhea, Denies nausea, Denies vomiting - Genitourinary (Female) Genitourinary: Denies dysuria, Denies hematuria - Menstruation Menstruation: Reports post hysterectomy - Musculoskeletal Musculoskeletal: Denies myalgias - Integumentary Comment: sty left eyelid - Neurological Neurological: Denies numbness, Denies weakness - Psychiatric Psychiatric: Denies anxiety, Denies depression - Endocrine Endocrine: Reports as per HPI - Hematologic/Lymphatic Comment: none - Allergic/Immunologic Allergic/Immunologic: Reports as per HPI, Reports seasonal allergies Objective - Constitutional General appearance: Present: cooperative - EENT Eyes: Present: EOMI ENT: Present: hearing grossly normal - Neck Neck: Present: normal ROM - Respiratory Respiratory: bilateral: CTA - Cardiovascular Heart sounds: normal: S1, S2 - Integumentary Integumentary: Present: normal turgor - Musculoskeletal Musculoskeletal: Present: gait normal - Psychiatric Psychiatric: Present: A&O x's 3, appropriate affect, intact judgment & insight - Additional findings Additional findings: Breast Exam: BRA: 40C Inspection: Postop changes right breast/patient has had a central lumpectomy Left nipple grade 3 ptosis Palpation: Right breast: Multi-positional exam postop and post radiation changes with some nodularity in the immediate posterior incision area which is believed to be surgical and radiation changes otherwise no dominant masses or nodules of concern Right axilla: No adenopathy of concern Left breast: Multi-positional exam fibrocystic changes no dominant masses or nodules of concern Left axilla: No adenopathy of concern Assessment and Plan Assessment: Impression: Right breast status post central lumpectomy for stage II invasive ductal carcinoma Patient is status post lumpectomy/chemotherapy/radiation therapy/and is presently on hormone therapy. Recent bilateral mammogram [id number] reviewed with radiology, new calcifications right breast recommending stereotactic core biopsy Plan: Stereotactic core biopsy calcifications [place] [id number] Continue to follow with medical and radiation oncology Continue aromatase inhibitor Patient to call sooner any questions or concerns Risk and benefits of stero biopsy discussed with the patient. Risks include but are not limited to bleeding, infection, reaction to the anesthetic. If the lesion were to be discordant on biopsy then further tissue acquisition may be necessary. Alternatives such as watchful waiting were discussed with the patient but not recommended. The patient understands and this is scheduled for the near future. CC: Dr. Randall
== END | disposition home or self-care (01) ==
LOC: RADMAMWWP 10:49
PROVIDERS: ATTEND Surgery
DX: C50.911 Malignant neoplasm of unspecified site of right female breast (principal); I10 Essential (primary) hypertension; Z17.0 Estrogen receptor positive status [ER+]; Z78.0 Asymptomatic menopausal state; Z80.0 Family history of malignant neoplasm of digestive organs; Z85.3 Personal history of malignant neoplasm of breast
CPT/HCPCS: 77066; G0279; 77062

== ENCOUNTER → 2023-08-14 | Outpatient (CLI) | payer MEDICARE ==
--- NOTE | 2023-08-14 13:59 | NM ---
EXAMINATION TYPE: NM bone scan whole body DATE OF EXAM: 08/14/2023 COMPARISON: NONE CLINICAL INDICATION: Female, 68 years old with history of C50.111 breast ca; Delayed whole-body scanning was performed following the injection of 25 mCi Tc 99m MDP. Images acqui red 5 hours post injection. FINDINGS: Multiple focal areas of increased radiotracer accumulation involving right ribs 7 and 8, the sternum, T6, T9, L1 and L5-S1. Also lower cervical increased uptake. Focal uptake right ankle and right mid f oot. Increased uptake left iliosacral region. IMPRESSION: Findings felt to reflect metastatic disease as noted.
== END | disposition home or self-care (01) ==
LOC: RADNMMAIN 07:27
PROVIDERS: ATTEND Internal Medicine Hematology & Oncology
DX: C50.111 Malignant neoplasm of central portion of right female breast (principal); I10 Essential (primary) hypertension; M12.9 Arthropathy, unspecified; Z71.3 Dietary counseling and surveillance
CPT/HCPCS: 78306; A9503

== ENCOUNTER → 2023-08-21 | Outpatient (CLI) | payer MEDICARE | END | disposition home or self-care (01) | LOC: LABWHC1 09:56 | PROVIDERS: ATTEND Internal Medicine Endocrinology, Diabetes & Metabolism | DX: E05.90 Thyrotoxicosis, unspecified without thyrotoxic crisis or storm (principal) ==

== ENCOUNTER → 2023-12-23 | Outpatient (CLI) | payer MEDICARE ==
--- NOTE | 2023-12-23 09:39 | MM ---
Reason for Exam: Additional evaluation requested from prior study. Last screening mammogram was performed 8 month(s) ago. Patient History: Menarche at age 13. Patient has no children. Left ovary removed at age 46. Right ovary removed at age 46. Hysterectomy at age 46. Postmenopausal. Breast cancer, right, age 65. Other cancer, age 55. Previous chest radiation therapy at age 65. Previous chemotherapy at age 65. 06/06/2023, Benign MG stereo VAD BX RT on the right side. 06/05/2021, Lumpectomy on the Right side. 06/05/2021, Malignant Core Biopsy on the right side. 04/12/2021, Malignant Core Biopsy on the right side. 04/12/2021, Malignant Core Biopsy on the right side. 04/12/2021, Malignant Core Biopsy on the right side. 2020, Radiation Therapy on the right side. 2020, Chemotherapy. Prior Study Comparison: 03/26/2021 Bilateral Diagnostic Mammogram, [facility]. 04/12/2021 Right Diagnostic Mammogram, [facility]. 04/16/2022 Bilateral MG 3D diag mammo w/cad LISA, [facility]. 04/24/2023 Bilateral MG 3D diag mammo w/cad LISA, [facility]. Tissue Density: Right: The breasts are heterogeneously dense, which may obscure small masses. Findings: Analyzed By CAD. This biopsy and lumpectomy changes right breast without evidence for recurrent mass or suspicious calcifications. Dystrophic calcifications noted. Overall Assessment: Benign, BI-RAD 2 Management: Diagnostic Mammogram of both breasts in 4 months. . Results were given to the patient verbally at the time of exam. Patient should continue monthly self-breast exams. A clinical breast exam by your physician is recommended on an annual basis. This exam should not preclude additional follow-up of suspicious palpable abnormalities. Note on Nayana scores and lifetime risk: 1. A Nayana score greater than 3% is considered moderate risk. If this is the case, consider specialist referral to assess eligibility for a risk reducing agent. 2. If overall lifetime risk for the development of breast cancer is 20% or higher, the patient may qualify for future screening with alternating mammogram and breast MRI. Electronically signed and approved by: Jose Lopez M.D. Radiologis
== END | disposition home or self-care (01) ==
LOC: RADMAMWWP 08:57
PROVIDERS: ATTEND Surgery
DX: R92.331 Mammographic heterogeneous density, right breast (principal); Z85.3 Personal history of malignant neoplasm of breast; Z78.0 Asymptomatic menopausal state
CPT/HCPCS: 77061; 77065

== ENCOUNTER → 2023-12-25 | Outpatient (CLI) | payer MEDICARE ==
[2023-12-25 09:29] VITALS: BP 122/79; PULSE 97; RESP 15; TEMP 98.3
--- NOTE | 2023-12-25 09:40 | P.PN ---
Subjective Progress Note Date: 12/25/23 Principal diagnosis: right breast stage IIB invasive ductal cancer 2020 [id number] right breast cancer/ stage IIB 2020 invasive ductal The patient was seen initially for Dr. Mondragon regarding a radiographic abnormality in the right breast. She had noted that she felt some itching behind the nipple areolar complex and some retraction of the nipple intermittently. A bilateral mammogram was performed on . This revealed a spiculated mass posterior to the right nipple areolar complex and ultrasound was recommended. Ultrasound confirmed a 2.6 x 3.1 cm lesion. Additionally at 2.5 cm lymph node was noted which was felt to be suspicious. The patient did not feel any specific lumps masses or nodules herself. She underwent ultrasound-guided core biopsy of the right breast and . This was at the 9:00 as well as the 8 o'clock position. The posterior nipple lesion revealed invasive moderately differentiated ductal carcinoma. This was ER positive VA and HER-2 negative. The second biopsy at the 9 o'clock position was negative. She had genetic testing performed which was negative. David is a 68-year-old white female who is status post right lumpectomy and sentinel node biopsy on ; patient this was identified as a spiculated mass posterior to the right nipple areolar complex and was noted to be 2.6 x 3.1 cm. ; Pathology revealed 2.1 cm grade 2 invasive ductal carcinoma, all margins negative, sentinel lymph node biopsy 1 of one positive. She underwent chemotherapy TC 4 completed September 2021 Radiation therapy: 50 Dickson with 10 Dickson cavity boost completed January 2022 Hormone therapy: Aromasin The patient did not feel any new lumps masses or nodules of concern in either breast, however, She underwent a bilateral mammogram on which revealed some new calcifications in the right breast in the retroareolar region. Sterotactic core biopsy done on 06-06-23 benign concordant. Mammogram on 12-23-23 BIRAD 2 Note medical oncology 09-02-23 Dr. 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 She than had a bone scan which was highly suspicious of mets, she was started on Ibrance. The PET scan results and bone scan results will be obtained. She was instructed to get Zolmeda from her medical oncologist in [place], she has not done this. She has no complaints at this time. She has an appointment with Dr. Beck on 01-01-24. The patient is not complaining of any new lumps masses or nodules of concern in either breast. 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, 15 years ago tonsil right breast lumpectomy and SNB Medical history: thyroid nodule/ hyperthyroid HTN bone mets no biopsy Social History: Nicotine: < one pack per day Alcohol: weekly drugs: none - Constitutional Constitutional: Denies chills, Denies fever - EENT Comment: sty on left eye lid Ears: bilateral: tinnitus, deny: decreased hearing Ears, nose, mouth and throat: Denies headache, Denies sore throat - Breasts Breasts: bilateral: as per HPI - Cardiovascular Cardiovascular: Denies chest pain, Denies shortness of breath - Respiratory Comment: smoker 40 years - Gastrointestinal Gastrointestinal: Denies abdominal pain, Denies diarrhea, Denies nausea, Denies vomiting - Genitourinary (Female) Genitourinary: Denies dysuria, Denies hematuria - Menstruation Menstruation: Reports post hysterectomy - Musculoskeletal Musculoskeletal: Denies myalgias - Integumentary Comment: sty left eyelid - Neurological Neurological: Denies numbness, Denies weakness - Psychiatric Psychiatric: Denies anxiety, Denies depression - Endocrine Endocrine: Reports as per HPI - Hematologic/Lymphatic Comment: none - Allergic/Immunologic Allergic/Immunologic: Reports as per HPI, Reports seasonal allergies Objective - Vital Signs Vital signs: Vital Signs Temp 98.3 F 12/25/23 09:08 Pulse 97 12/25/23 09:08 Resp 15 12/25/23 09:08 BP 122/79 12/25/23 09:08 Pulse Ox 98 12/25/23 09:08 FiO2 Intake & Output 12/24/23 12/25/23 12/25/23 18:59 06:59 18:59 Weight 83.007 kg - Constitutional General appearance: Present: cooperative - EENT Eyes: Present: EOMI ENT: Present: hearing grossly normal - Neck Neck: Present: normal ROM - Respiratory Respiratory: bilateral: CTA - Cardiovascular Rhythm: regular Heart sounds: normal: S1, S2 - Integumentary Integumentary: Present: normal turgor - Musculoskeletal Musculoskeletal: Present: gait normal - Psychiatric Psychiatric: Present: A&O x's 3, appropriate affect, intact judgment & insight - Additional findings Additional findings: Breast Exam: BRA: 40C Inspection: Postop changes right breast/patient has had a central lumpectomy Left nipple grade 3 ptosis Palpation: Right breast: Multi-positional exam postop and post radiation changes with some nodularity in the immediate posterior incision area which is believed to be surgical and radiation changes otherwise no dominant masses or nodules of concern Right axilla: No adenopathy of concern Left breast: Multi-positional exam fibrocystic changes no dominant masses or nodules of concern Left axilla: No adenopathy of concern Assessment and Plan Assessment: Impression: Right breast status post central lumpectomy for stage II invasive ductal carcinoma Patient is status post lumpectomy/chemotherapy/radiation therapy/and is presently on hormone therapy. Recent bilateral mammogram reviewed with radiology, new calcifications right breast recommending stereotactic core biopsy/ done on 06-06-23 benign concordant bone scan ? metastatic dieseas Plan: Obtain bone scan and PET scan results Bilateral mammogram in April with examination at that time Continue to follow with medical and radiation oncology Continue aromatase inhibitor/letrazole Continue Ibrance as per medical oncology Patient to call sooner any questions or concerns CC: Dr. Randall
== END ==
LOC: WWCWWP 08:45
PROVIDERS: ATTEND Surgery
DX: R92.8 Other abnormal and inconclusive findings on diagnostic imaging of breast (principal); R92.1 Mammographic calcification found on diagnostic imaging of breast; C50.911 Malignant neoplasm of unspecified site of right female breast; N64.53 Retraction of nipple; F17.210 Nicotine dependence, cigarettes, uncomplicated; Z17.0 Estrogen receptor positive status [ER+]; Z92.3 Personal history of irradiation; Z90.710 Acquired absence of both cervix and uterus; Z90.11 Acquired absence of right breast and nipple; Z88.1 Allergy status to other antibiotic agents; Z91.040 Latex allergy status

== ENCOUNTER → 2024-06-04 | Outpatient (CLI) | payer MEDICARE ==
--- NOTE | 2024-06-14 14:40 | MM ---
Reason for Exam: Follow-up at short interval from prior study. Last mammogram was performed 1 year(s) and 1 month(s) ago. Patient History: Menarche at age 13. Patient has no children. Left ovary removed at age 46. Right ovary removed at age 46. Hysterectomy at age 46. Postmenopausal. Breast cancer, right, age 65. Other cancer, age 55. Previous chest radiation therapy at age 65. Previous chemotherapy at age 65. 06/06/2023, Benign MG stereo VAD BX RT on the right side. 06/05/2021, Lumpectomy on the Right side. 06/05/2021, Malignant Core Biopsy on the right side. 04/12/2021, Malignant Core Biopsy on the right side. 04/12/2021, Malignant Core Biopsy on the right side. 04/12/2021, Malignant Core Biopsy on the right side. 2020, Radiation Therapy on the right side. 2020, Chemotherapy. Tissue Density: The breasts are heterogeneously dense, which may obscure small masses. Findings: Analyzed By CAD. The pattern is symmetrical. Left breast is larger than right. Postbiopsy changes are evident in the mid right breast. Scattered benign punctate calcifications are present bilaterally. No suspicious groups of microcalcifications, spiculated or lobular masses, architectural distortion or other secondary signs of malignancy are mammographically apparent. Overall Assessment: Benign, BI-RAD 2 Management: Diagnostic Mammogram of both breasts in 1 year. A negative mammogram report should not preclude additional follow up of suspicious palpable abnormalities. Patient should continue monthly self breast exam. A clinical breast exam by your physician is recommended on an annual basis and results should be correlated with mammographic findings. Note on Nayana scores and lifetime risk: 1. A Nayana score greater than 3% is considered moderate risk. If this is the case, consider specialist referral to assess eligibility for a risk reducing agent. 2. If overall lifetime risk for the development of breast cancer is 20% or higher, the patient may qualify for future screening with alternating mammogram and breast MRI. [facility], , 06/04/2024 10:14 AM. Electronically signed and approved by: Edgard Diop D.O. Radiologis
== END | disposition home or self-care (01) ==
LOC: RADMAMWWP 09:48
PROVIDERS: ATTEND Surgery
DX: Z85.3 Personal history of malignant neoplasm of breast
CPT/HCPCS: 77062; 77066

== ENCOUNTER → 2024-06-17 | Outpatient (CLI) | payer MEDICARE ==
[2024-06-17 10:48] VITALS: BP 138/81; PULSE 79; RESP 17; TEMP 98.4
--- NOTE | 2024-06-17 11:21 | P.PN ---
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 Modnragon regarding a radiographic abnormality in the right breast. She had noted that she felt some itching behind the nipple areolar complex and some retraction of the nipple intermittently. A bilateral mammogram was performed on . This revealed a spiculated mass posterior to the right nipple areolar complex and ultrasound was recommended. Ultrasound confirmed a 2.6 x 3.1 cm lesion. Additionally at 2.5 cm lymph node was noted which was felt to be suspicious. The patient did not feel any specific lumps masses or nodules herself. She underwent ultrasound-guided core biopsy of the right breast on . This was at the 9:00 as well as the 8 o'clock position. The posterior nipple lesion revealed invasive moderately differentiated ductal carcinoma. This was ER positive MA and HER-2 negative. The second biopsy at the 9 o'clock position was negative. She had genetic testing performed which was negative. David is a 69-year-old white female who is status post right lumpectomy and sentinel node biopsy on ; patient this was identified as a spiculated mass posterior to the right nipple areolar complex and was noted to be 2.6 x 3.1 cm. ; Pathology revealed 2.1 cm grade 2 invasive ductal carcinoma, all margins negative, sentinel lymph node biopsy 1 of one positive. She underwent chemotherapy TC 4 completed September 2021 Radiation therapy: 50 Dickson with 10 Dickson cavity boost completed January 2022 Hormone therapy: Aromasin The patient did not feel any new lumps masses or nodules of concern in either breast, however, She underwent a bilateral mammogram on which revealed some new calcifications in the right breast in the retroareolar region. Sterotactic core biopsy done on 06-06-23 benign concordant. bilateral mammogram 06-04-24 BIRAD 2 personally interpreted Note medical oncology 05-27-24 Dr. 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 She than had a bone scan which was highly suspicious of mets, she was started on Ibrance. The PET scan results and bone scan results consistent with bony mets. . Zometa 4 mg IV Q 4 weeks Fosladex 500 mg IM q 4 weeks Ibrance 125 mg po days 1-21 Q 28 days She has no complaints at this time. She has an appointment with Dr. Beck . The patient is not complaining of any new lumps masses or nodules of concern in either breast. another PET scan is ordered and will be doen next week Caffiene: 1 cup coffee/day nicotine: < 1 PPD has been smoking for >40 years; stopped September of 2023 chocolate: daily Family history: mother: colon cancer father: colon cancer, melanoma Hormonal history: Menarche: 13 G0 menopause: MEAGHAN at 45 for an 8 pound fibroid tumor BCP: 4 years intermittently Hormones: < 1 year after MEAGHAN Surgical history: Total Abdominal hysterectomy for fibroid tumor/surgeon Mohs procedure cancer on head from a sweat gland, 15 years ago tonsil right breast lumpectomy and SNB Medical history: thyroid nodule/ hyperthyroid HTN bone mets no biopsy Social History: Nicotine: < one pack per day Alcohol: weekly drugs: none - Constitutional Constitutional: Denies chills, Denies fever - EENT Comment: sty on left eye lid Ears: bilateral: tinnitus, deny: decreased hearing Ears, nose, mouth and throat: Denies headache, Denies sore throat - Breasts Breasts: bilateral: as per HPI - Cardiovascular Cardiovascular: Denies chest pain, Denies shortness of breath - Respiratory Comment: smoker 40 years - Gastrointestinal Gastrointestinal: Denies abdominal pain, Denies diarrhea, Denies nausea, Denies vomiting - Genitourinary (Female) Genitourinary: Denies dysuria, Denies hematuria - Menstruation Menstruation: Reports post hysterectomy - Musculoskeletal Musculoskeletal: Denies myalgias - Integumentary Comment: sty left eyelid - Neurological Neurological: Denies numbness, Denies weakness - Psychiatric Psychiatric: Denies anxiety, Denies depression - Endocrine Endocrine: Reports as per HPI - Hematologic/Lymphatic Comment: none - Allergic/Immunologic Allergic/Immunologic: Reports as per HPI, Reports seasonal allergies Objective - Vital Signs Vital signs: Vital Signs Temp 98.4 F 06/17/24 10:45 Pulse 79 06/17/24 10:45 Resp 17 06/17/24 10:45 BP 138/81 06/17/24 10:45 Pulse Ox 98 06/17/24 10:45 FiO2 Intake & Output 06/16/24 06/17/24 06/17/24 18:59 06:59 18:59 Weight 83.915 kg - Constitutional General appearance: Present: cooperative - EENT Eyes: Present: EOMI ENT: Present: hearing grossly normal - Neck Neck: Present: normal ROM - Respiratory Respiratory: bilateral: CTA - Cardiovascular Rhythm: regular Heart sounds: normal: S1, S2 - Integumentary Integumentary: Present: normal turgor - Musculoskeletal Musculoskeletal: Present: gait normal - Psychiatric Psychiatric: Present: A&O x's 3, appropriate affect, intact judgment & insight - Additional findings Additional findings: Breast Exam: BRA: 40C Inspection: Postop changes right breast/patient has had a central lumpectomy, under both breasts, nevus left breast lateral aspect which has gotten larger and is black in color Left nipple grade 3 ptosis Palpation: Right breast: Multi-positional exam postop and post radiation changes with some nodularity in the immediate posterior incision area which is believed to be surgical and radiation changes otherwise no dominant masses or nodules of concern Right axilla: No adenopathy of concern Left breast: Multi-positional exam fibrocystic changes no dominant masses or nodules of concern, dark nevus lateral aspect of the breast which is approximately 2-1/2 cm x 1 cm in size Left axilla: No adenopathy of concern Assessment and Plan Assessment: Impression: Right breast status post central lumpectomy for stage II invasive ductal carcinoma Patient is status post lumpectomy/chemotherapy/radiation therapy/and is presently on hormone therapy. Nevus left breast bone scan/ PET scan metastatic disease to bone Plan: Repeat PET scan to send results Bilateral mammogram in April 2025 with examination at that time Continue to follow with medical and radiation oncology Continue Ibrance/Zometa/Fosladex as per medical oncology nystatin cream Patient to call sooner any questions or concerns CC: Dr. Randall
== END ==
LOC: WWCWWP 09:58
PROVIDERS: ATTEND Surgery
DX: Z48.817 Encounter for surgical aftercare following surgery on the skin and subcutaneous tissue (principal); C50.811 Malignant neoplasm of overlapping sites of right female breast; C79.51 Secondary malignant neoplasm of bone; D22.5 Melanocytic nevi of trunk; F17.210 Nicotine dependence, cigarettes, uncomplicated; N64.53 Retraction of nipple; Z17.0 Estrogen receptor positive status [ER+]; Z92.3 Personal history of irradiation; Z88.1 Allergy status to other antibiotic agents; Z91.040 Latex allergy status

== ENCOUNTER → 2024-08-20 | Outpatient (CLI) | payer MEDICARE ==
[2024-08-20 08:50] VITALS: BP 118/81; PULSE 82; RESP 17; TEMP 97.4
--- NOTE | 2024-08-20 09:15 | P.PN ---
Subjective Progress Note Date: 08/20/24 Principal diagnosis: Nevus of concern left breast David is a 69-year-old female who presents today for excision of a dark nevus on her left breast. Following informed consent, the area of concern in the left breast was prepped using chlorhexidine. 10 cc of 1% lidocaine were used to anesthetize the area of concern. Wide excision was performed. The incision was then closed using 3-0 nylon suture. The dimensions were 4.5 cm x 2 cm. The patient tolerated the procedure in stable condition. The specimen is sent to pathology. All instrument and sponge counts were correct at the end of the case. Plan: Follow-up in 2 weeks Follow-up sooner any questions or concerns Objective - Vital Signs Vital signs: Vital Signs Temp 97.4 F L 08/20/24 08:48 Pulse 82 08/20/24 08:48 Resp 17 08/20/24 08:48 BP 118/81 08/20/24 08:48 Pulse Ox 98 08/20/24 08:48 FiO2 Intake & Output 08/19/24 08/20/24 08/20/24 18:59 06:59 18:59 Weight 85.275 kg
== END ==
LOC: WWCWWP 08:39
PROVIDERS: ATTEND Surgery
DX: D22.5 Melanocytic nevi of trunk (principal); Z91.040 Latex allergy status; Z88.1 Allergy status to other antibiotic agents

== ENCOUNTER → 2024-09-02 | Outpatient (CLI) | payer MEDICARE ==
[2024-09-02 09:07] VITALS: BP 123/79; PULSE 95; RESP 16; TEMP 98.3
--- NOTE | 2024-09-02 09:38 | P.PN ---
Subjective Progress Note Date: 09/02/24 Principal diagnosis: metastatic breast cancer David is status post excision of a left breast skin [place]. This was Seborrheic keratosis. Metastatic breast cancer and is doing well on treatment right now with medical oncology. She tolerated excision of the skin lesion without difficulty. Examination Incision clean and dry Plan: remove sutures Follow-up with medical oncology, to [place] for [facility] has a medical oncologist there that she is following with She will follow-up here when she returns home in 4 months after appointment with Dr. Beck Objective - Vital Signs Vital signs: Vital Signs Temp 98.3 F 09/02/24 09:05 Pulse 95 09/02/24 09:05 Resp 16 09/02/24 09:05 BP 123/79 09/02/24 09:05 Pulse Ox 96 09/02/24 09:05 FiO2 Intake & Output 09/01/24 09/02/24 09/02/24 18:59 06:59 18:59 Weight 84.822 kg
== END ==
LOC: WWCWWP 08:18
PROVIDERS: ATTEND Surgery
DX: C79.81 Secondary malignant neoplasm of breast (principal); C80.1 Malignant (primary) neoplasm, unspecified; L82.1 Other seborrheic keratosis; Z88.1 Allergy status to other antibiotic agents; Z91.040 Latex allergy status